=== PATIENT | female | born 1945 | race Caucasian/White ===

== ENCOUNTER 2020-12-14 09:42 | Outpatient (CLI) | payer MEDICARE, OTHER ==
[2020-12-14 11:20] LABS: #Eosinphils 0.1 10x3/uL (0.0-0.5); #Monocytes 0.6 10x3/uL (0.0-1.1); #Neutrophils 2.5 10x3/uL (1.5-8.4); %Basophils 0.8 % (0.0-2.0); %Lymphocytes 37.9 % (18.0-47.0); %Neutrophils 49.1 % (40.0-75.0); Hemoglobin 13.4 g/dL (12.0-15.5); Mean Corpuscular HGB CONC 32.9 g/dL (32.0-36.0); Mean Corpuscular Hemoglobin 28.6 pg (27.0-33.0); Mean Platelet Volume 10.7 fl (7.4-10.4); Platelet Count 249 10x3/uL (150-450); RBC Distribution Width 13.3 % (11.5-14.5); Red Blood Cell (RBC) Count 4.68 10x6/uL (3.90-5.03)
[2020-12-14 11:23] LABS: ALT (SGPT) 20 U/L (8-55); AST (SGOT) 23 U/L (5-34); Albumin 4.2 g/dL (3.4-4.8); Alkaline Phosphatase 74 U/L (40-110); Anion Gap 14 mmol/L (10-20); BUN (Urea Nitrogen) 13 mg/dL (9.8-20.1); Bilirubin, Total 0.5 mg/dL (0.2-1.2); Calc. Creatinine Clearance 0 mL/min (70-130); Calcium 9.9 mg/dL (7.8-10.44); Carbon Dioxide 26 mmol/L (23-31); Chloride 96 mmol/L (98-107); Globulin 2.4 g/dL (2.4-3.5); Glucose 109 mg/dL (83-110); Potassium 4.6 mmol/L (3.5-5.1); Protein, Total 6.6 g/dL (5.8-8.1); Sodium 131 mmol/L (136-145)
[2020-12-14 22:25] LABS: SARS-CoV-2 NAA Rapid Test Not Detected (NotDetected)
== END 2020-12-14 09:43 | disposition home or self-care (01) ==
LOC: LABBT 09:42
PROVIDERS: ATTEND Specialist
DX: Z01.818 Encounter for other preprocedural examination (principal); K80.20 Calculus of gallbladder without cholecystitis without obstruction; Z20.822 Contact with and (suspected) exposure to COVID-19
CPT/HCPCS: 80053; 85025; 93005; U0002; U0005; 93010

== ENCOUNTER 2020-12-19 05:54 | Day surgery (SDC) | payer MEDICARE, BC ==
[2020-12-18 12:14] VITALS: BMI 25.4
[2020-12-19] MEDS ORDERED: Levofloxacin 500 mg/D5W 100 ml Premix Bag ONE (06:13)
[2020-12-19] MEDS ORDERED: Acetaminophen 500 MG TAB ONE (06:13)
[2020-12-19] MEDS ORDERED: Ketorolac Tromethamine 30 MG/ML VIAL ONE (06:13)
[2020-12-19] MEDS ORDERED: Lidocaine 1% w/Epinephrine 1:100K 20 ML VIAL ONE (06:37)
[2020-12-19] MEDS ORDERED: Bupivacaine 0.25% HCL 30 ML VIAL ONE (06:37)
[2020-12-19] MEDS ORDERED: Fentanyl 100 MCG/2 ML VIAL ONE (07:08)
[2020-12-19] MEDS ORDERED: Glycopyrrolate 0.2 MG/ML 5 ML SYRINGE ONE (08:19)
[2020-12-19] MEDS ORDERED: Rocuronium Bromide 10 MG/ML (10ML VIAL) ONE (08:19)
[2020-12-19] MEDS ORDERED: Lidocaine 1% PF 5 ML VIAL ONE (08:19)
[2020-12-19] MEDS ORDERED: ePHEDrine Sulfate 50 MG/10 ML VIAL ONE (08:19)
[2020-12-19] MEDS ORDERED: PROPOFOL 200 MG/20 ML VIAL ONE (08:19)
[2020-12-19] MEDS ORDERED: Ondansetron PF 4 MG/2 ML Vial ONE (08:19)
[2020-12-19] MEDS ORDERED: Dexamethasone 20 MG/5 ML VIAL ONE (08:19)
[2020-12-19] MEDS ORDERED: Iothalamate Meglumine 60% 50 ML VIAL FS ONE (08:56)
[2020-12-19] MEDS ORDERED: traMADol HCl 50 MG TAB ONE (10:25)
== END 2020-12-19 11:07 | disposition home or self-care (01) ==
LOC: SDC 05:54
PROVIDERS: ATTEND Specialist
PROC: 0FT44ZZ Resection of Gallbladder, Percutaneous Endoscopic Approach (ICD-10-PCS; principal; 2020-12-19)
PROC: BF101ZZ Fluoroscopy of Bile Ducts using Low Osmolar Contrast (ICD-10-PCS; 2020-12-19)
DX: K80.10 Calculus of gallbladder with chronic cholecystitis without obstruction (principal); I10 Essential (primary) hypertension; E78.5 Hyperlipidemia, unspecified; M19.90 Unspecified osteoarthritis, unspecified site; Z87.891 Personal history of nicotine dependence; Z79.1 Long term (current) use of non-steroidal anti-inflammatories (NSAID); Z79.82 Long term (current) use of aspirin; Z79.899 Other long term (current) drug therapy; Z88.0 Allergy status to penicillin; Z88.1 Allergy status to other antibiotic agents; Z88.2 Allergy status to sulfonamides; Z88.5 Allergy status to narcotic agent; Z91.048 Other nonmedicinal substance allergy status
CPT/HCPCS: 47532; 47563; Q9961; 88304; J1100; J1885; J1956; J2405; J2704; J3010; S0020

== ENCOUNTER 2022-06-27 13:13 | Outpatient (CLI) | payer MEDICARE, BC | END 2022-06-27 13:14 | disposition home or self-care (01) | LOC: BICMAMMO 13:13 | PROVIDERS: ATTEND Family Medicine | DX: N63.11 Unspecified lump in the right breast, upper outer quadrant (principal) | CPT/HCPCS: 76642; 77065; G0279 ==

== ENCOUNTER → 2022-07-04 | Day surgery (SDC) | payer MEDICARE, BC | END | disposition home or self-care (01) | LOC: BICULT 12:23 | PROVIDERS: ATTEND Family Medicine | PROC: 0H9T3ZX Drainage of Right Breast, Percutaneous Approach, Diagnostic (ICD-10-PCS; principal; 2022-07-04) | DX: C50.411 Malignant neoplasm of upper-outer quadrant of right female breast (principal); Z17.0 Estrogen receptor positive status [ER+]; Z88.0 Allergy status to penicillin; Z88.1 Allergy status to other antibiotic agents; Z88.2 Allergy status to sulfonamides; Z88.5 Allergy status to narcotic agent; Z91.048 Other nonmedicinal substance allergy status | CPT/HCPCS: 19083; 88305; 88341; 88342; 88361 ==

== ENCOUNTER 2022-07-29 11:25 | Outpatient (CLI) | payer MEDICARE, BC ==
[2022-07-29 13:22] LABS: #Monocytes 0.6 10x3/uL (0.0-1.1); #Neutrophils 4.3 10x3/uL (1.5-8.4); %Basophils 0.5 % (0.0-2.0); %Eosinophils 0.2 % (0.0-6.0); %Lymphocytes 21.4 % (18.0-47.0); %Monocytes 8.8 % (0.0-10.0); %Neutrophils 68.9 % (40.0-75.0); Mean Corpuscular HGB CONC 33.3 g/dL (32.0-36.0); Mean Corpuscular Hemoglobin 28.4 pg (27.0-33.0); Mean Corpuscular Volume 85.2 fl (81.6-98.3); Mean Platelet Volume 10.9 fl (7.4-10.4); Platelet Count 292 10x3/uL (150-450); RBC Distribution Width 14.4 % (11.5-14.5); Red Blood Cell (RBC) Count 4.93 10x6/uL (3.90-5.03); White Blood Cell (WBC) Count 6.3 10x3/uL (3.5-10.5)
[2022-07-29 13:51] LABS: Anion Gap 14 mmol/L (10-20); BUN (Urea Nitrogen) 13 mg/dL (9.8-20.1); Calc. Creatinine Clearance 0 mL/min (70-130); Carbon Dioxide 28 mmol/L (23-31); Chloride 101 mmol/L (98-107); Estimated GFR 88; Glucose 110 mg/dL (83-110); Potassium 3.8 mmol/L (3.5-5.1); Sodium 139 mmol/L (136-145)
[2022-07-29 16:17] LABS: ALT (SGPT) 18 U/L (8-55); AST (SGOT) 22 U/L (5-34); Albumin 4.6 g/dL (3.4-4.8); Alkaline Phosphatase 72 U/L (40-110); Bilirubin, Direct 0.2 mg/dL (0.1-0.3); Bilirubin, Total 0.4 mg/dL (0.2-1.2); Lipase 24 U/L (8-78)
== END 2022-07-29 11:26 | disposition home or self-care (01) ==
LOC: LABBT 11:25
PROVIDERS: ATTEND Specialist
DX: Z01.812 Encounter for preprocedural laboratory examination (principal); R94.5 Abnormal results of liver function studies
CPT/HCPCS: 80048; 80076; 82150; 83690; 85025; 93005; 93010

== ENCOUNTER 2022-08-01 07:26 | Day surgery (SDC) | payer MEDICARE, BC ==
[2022-07-31 10:00] VITALS: BMI 26.2
[2022-08-01] MEDS ORDERED: Ketorolac Tromethamine 30 MG/ML VIAL ONE (09:39)
[2022-08-01] MEDS ORDERED: Acetaminophen 500 MG TAB ONE (09:39)
[2022-08-01] MEDS ORDERED: Midazolam HCl 2 mg/2 ml Vial ONE (10:33)
[2022-08-01] MEDS ORDERED: fentaNYL PF 100 MCG/2 ML SYRINGE ONE (10:33)
[2022-08-01] MEDS ORDERED: Isosulfan Blue 50 MG/5 ML VIAL ONE (10:35)
[2022-08-01] MEDS ORDERED: Bupivacaine/Epinephrine 0.25% 30 ML VIAL ONE ×2 (10:35→12:11)
[2022-08-01] MEDS ORDERED: CEFAZOLIN 2 GM VIAL ONE (10:51)
[2022-08-01] MEDS ORDERED: Sodium Chloride 0.9% 100 ML ONE (10:51)
[2022-08-01] MEDS ORDERED: Lidocaine 1% PF 5 ML VIAL ONE (11:11)
[2022-08-01] MEDS ORDERED: Ondansetron PF 4 MG/2 ML Vial ONE (11:11)
[2022-08-01] MEDS ORDERED: PROPOFOL 200 MG/20 ML VIAL ONE (11:11)
[2022-08-01] MEDS ORDERED: Dexamethasone 20 MG/5 ML VIAL ONE (11:11)
== END 2022-08-01 14:10 | disposition home or self-care (01) ==
LOC: NM 07:26
PROVIDERS: ATTEND Specialist
PROC: 0HBT0ZZ Excision of Right Breast, Open Approach (ICD-10-PCS; principal; 2022-08-01)
PROC: 07B50ZX Excision of Right Axillary Lymphatic, Open Approach, Diagnostic (ICD-10-PCS; 2022-08-01)
DX: C50.411 Malignant neoplasm of upper-outer quadrant of right female breast (principal); I10 Essential (primary) hypertension; Z17.0 Estrogen receptor positive status [ER+]; Z87.891 Personal history of nicotine dependence; Z79.1 Long term (current) use of non-steroidal anti-inflammatories (NSAID); Z79.82 Long term (current) use of aspirin; Z79.899 Other long term (current) drug therapy; Z88.0 Allergy status to penicillin; Z88.1 Allergy status to other antibiotic agents; Z88.2 Allergy status to sulfonamides; Z88.5 Allergy status to narcotic agent; Z88.6 Allergy status to analgesic agent; Z91.018 Allergy to other foods; Z91.048 Other nonmedicinal substance allergy status
CPT/HCPCS: 19301; 38525; 38900; 76098; 78195; A9541; C1713; C1776; Q9968; 88307; 88342; J1100; J1885; J2250; J2405; J2704; J3490